=== PATIENT | female | born 1990 | race Caucasian/White ===

== ENCOUNTER → 2018-10-02 | Outpatient (CLI) | payer BC ==
--- NOTE | 2018-10-02 14:06 | KCIC ---
EXAM: Lumbar spine MRI without contrast. HISTORY: Pain. TECHNIQUE: Multiplanar, multisequence magnetic resonance imaging of the lumbar spine was performed without contrast. COMPARISON: Radiographs dated 09/15/2018. FINDINGS: There is a transitional lumbosacral segment. Based on this numbering system utilized on the comparison radiographs, this is considered a sacralized L5 segment. Based on this numbering system, there is minimal retrolisthesis of L4 on L5. There is degenerative endplate remodeling with disc space narrowing and adjacent marrow signal changes along the posterior aspect of L4-L5. There are multiple thoracic and lumbar endplate Schmorl's nodes. There is no acute or subacute fracture. There is diffusely decreased T1 marrow signal intensity. The conus terminates at L1. At T11-T12, there is a shallow right paracentral disc protrusion. There is no stenosis. At T12-L1, there is no stenosis. At L1-L2, there is no stenosis. At L2-L3, there is no stenosis. At L3-L4, there is no stenosis. At L4-L5, there is a broad-based left paracentral disc protrusion with slight superior extrusion and there are bilateral foraminal to extra foraminal disc protrusions. These are superimposed on a disc bulge and endplate osteophytosis. There is mild bilateral facet arthropathy. There is mild retrolisthesis. There is mild bilateral foraminal stenosis with abutment of the exiting left greater than right L4 nerve roots. There is also slight effacement of the left lateral recess and abutment of the traversing left L5 nerve root. At L5-S1, there is a rudimentary disc at this level. There is no stenosis. IMPRESSION: 1. Transitional lumbosacral segment. This is considered a sacralized L5 segment with rudimentary L5-S1 disc for this dictation. 2. L4-L5: Broad-based left paracentral disc protrusion with slight superior extrusion and bilateral foraminal to extraforaminal disc protrusion superimposed on a disc bulge, endplate osteophytosis and retrolisthesis. This results in mild bilateral foraminal stenosis with abutment the exiting left greater than right L4 nerve root and slight effacement of the left lateral recess with abutment of the traversing left L5 nerve root. 3. Diffusely decreased T1 marrow signal intensity. This is most commonly due to anemia in female patients of this age. Electronically signed by: Olga Vasquez MD (10/02/2018 2:03 PM) [id number]
== END | disposition home or self-care (01) ==
LOC: KCIC MRI 12:54
PROVIDERS: ATTEND Physician Assistant Medical
DX: M51.26 Other intervertebral disc displacement, lumbar region (principal); M48.061 Spinal stenosis, lumbar region without neurogenic claudication; M12.88 Other specific arthropathies, not elsewhere classified, other specified site
CPT/HCPCS: 72148